=== PATIENT | female | born 1985 | race Two or more races ===

== ENCOUNTER → 2024-11-03 | Outpatient (CLI) | payer BC, SELFPAY ==
--- NOTE | 2024-11-03 11:45 | XR_ITS ---
Examination: Screening digital mammography, bilateral Computer aided detection 3-D breast Tomosynthesis, bilateral Date and time of exam: November 03, 2024 1126 hours No priors Indication: Screening Technique: Nonmagnified MLO, CC views of the breasts to been obtained, reconstructed from 3-D Tomosynthesis images. R2 computer aided detection program utilized for evaluation of suspicious masses and/or abnormal calcifications. 3-D Tomosynthesis images obtained. Findings: The breasts are heterogeneously dense, which may obscure small masses Benign calcifications. No suspicious masses Impression: BI-RADS category II: Benign Findings. Recommend 1 year follow-up mammogram.
== END | disposition home or self-care (01) ==
PROVIDERS: PCP Internal Medicine; Referring Provider Internal Medicine; Visit Provider Internal Medicine
DX: Z12.31 Encounter for screening mammogram for malignant neoplasm of breast (principal); R92.323 Mammographic fibroglandular density, bilateral breasts; R92.1 Mammographic calcification found on diagnostic imaging of breast
CPT/HCPCS: 77063; 77067

== ENCOUNTER 2025-03-15 15:12 | Emergency (ER) | payer BC, SELFPAY ==
--- NOTE | 2025-03-15 15:16 | EKG_ITS ---
[facility] Test Date: 2025-03-15 Pat Name: MARIA LUISA ARMSTRONG Department: Room: - Gender: Female [employer]: : 1985 Requested By: Koffi Downey Order Number: [id number] Reading MD: Koffi Downey Measurements Intervals [place] Rate: 86 P: 55 DE: 130 QRS: 12 QRSD: 140 T: 95 QT: 393 QTc: 471 Interpretive Statements SINUS RHYTHM LEFT BUNDLE BRANCH BLOCK [120+ ms QRS DURATION, 80+ ms Q/S IN V1/V2, 85+ ms R IN I/aVL/V5/V6] Compared to ECG 01/30/2022 16:48:30 Left bundle-branch block now present Myocardial infarct finding no longer present /store/S0/[id number].pdf
--- NOTE | 2025-03-15 15:23 | XR_ITS ---
Upright PA and lateral chest film 03/15/2025 at 3:30 p.m. Comparison study 01/30/2022 CLINICAL HISTORY: Shortness of breath nausea irregular heart rate for a couple of weeks. FINDINGS: The heart and mediastinum have a normal radiographic appearance. Both lungs and pleural space are clear normal. Bony thorax appears unremarkable. IMPRESSION: Normal chest x-ray
--- NOTE | 2025-03-15 15:24 | PD.EDRME ---
Rapid Medical Screening Exam RME Arrival date/time: 03/15/25 15:12 40-year-old female with medical history significant for CHF presents to the emergency department of complaints of chest pain and palpitations Chief Complaint: Chest Pain Time Seen by Provider: 03/15/25 15:15 Vital signs reviewed by provider: Yes Exam: On exam patient well-appearing does not appear ill or toxic Clinical Impression: Lab work imaging EKG obtained
[2025-03-15 15:28] VITALS: BP 116/81; PULSE 98; RESP 18; TEMP 36.9; O2SAT 99
[2025-03-15 15:30] VITALS: BMI 21.9
[2025-03-15 16:16] LABS: Basophils # (Auto) 0.0 Thou/mm3 (0.0-0.2); Basophils % (Auto) 1 % (0-2.5); Eosinophils # (Auto) 0.1 Thou/mm3 (0.0-0.5); Eosinophils % (Auto) 3 % (0-10); Hematocrit 41.8 % (36.0-46.0); Hemoglobin 14.6 g/dL (12.0-16.0); Immature Granulocytes Auto 0.01 Thou/mm3 (0.00-0.00); Lymphocytes # (Auto) 0.9 Thou/mm3 (1.0-4.8); Lymphocytes % (Auto) 20 % (10-50); Mean Corpuscular HGB Conc 34.9 g/dl (31.0-37.0); Mean Corpuscular Hemoglobin 30.4 pg (25.0-35.0); Mean Corpuscular Volume 87 fL (80-100); Monocytes # (Auto) 0.3 Thou/mm3 (0.0-0.8); Monocytes % (Auto) 6 % (0-12); Neutrophils # (Auto) 3.1 Thou/mm3 (1.8-7.7); Neutrophils % (Auto) 71 % (37-80); Nucleated Red Blood Cell # 0.00 Thou/mm3 (0.00-0.00); Nucleated Red Blood Cell % 0 /100 WBC (0); Platelet Count 182 Thou/mm3 (140-440); RDW Standard Deviation 39.8 fL (36.4-46.3); Red Blood Count 4.81 Miln/mm3 (4.00-5.20); White Blood Count 4.4 Thou/mm3 (3.6-11.0)
[2025-03-15 16:32] LABS: HCG,Qualitative Serum Negative
[2025-03-15 16:37] LABS: B-Type Natriuretic Peptide < 20 pg/mL (0-100)
[2025-03-15 16:43] LABS: Alanine Aminotransferase 18 U/L (10-49); Albumin, Serum 4.9 gm/dL (3.5-5.0); Albumin/Globulin Ratio 1.4 (1.2-2.2); Alkaline Phosphatase 64 U/L (46-116); Anion Gap 11 (7-16); Aspartate Amino Transferase 22 U/L (0-34); BUN/Creatinine Ratio 14 Ratio (12-20); Bilirubin,Total 0.4 mg/dL (0.3-1.2); Blood Urea Nitrogen 13 mg/dL (9-23); Calcium 8.9 mg/dL (8.3-10.6); Calcium (Corrected) 8.9 mg/dL (8.5-10.1); Carbon Dioxide 29.0 mMol/L (20.0-31.0); Chloride 97 mMol/L (98-107); Creatinine (Component) 0.9 mg/dL (0.6-1.3); Estimated Creatinine Clearance 70.3 mL/min (>60); Free T4 (Free Thyroxine) 1.28 ng/dL (0.89-1.76); Globulin 3.4 gm/dL (2.3-3.5); Glucose 87 mg/dL (74-106); Magnesium 1.7 mg/dL (1.6-2.6); Osmolality,Calculated 272 (275-295); Potassium 3.4 mMol/L (3.4-5.1); Sodium 137 mMol/L (136-145); Thyroid Stimulating Hormone 3.62 uIU/mL (0.55-4.78); Total Protein 8.3 gm/dL (5.7-8.2); Troponin I < 0.002 ng/mL (0.0-0.045); eGFR > 60 See Note
[2025-03-15 17:08] LABS: INR 1.0 (0.9-1.3); Partial Thromboplastin Time 26.2 Seconds (22.0-36.0); Prothrombin Time 10.4 Seconds (9.0-12.2)
--- NOTE | 2025-03-15 18:46 | EDNOTE_ITS ---
ED Chest Pain RME/HPI General Chief Complaint: Chest Pain Stated Complaint: H/O HEART FAILURE, CHEST FEELS TIGHTNESS, SWELLING Time Seen by Provider: 03/15/25 15:15 Arrival date/time: 03/15/25 15:12 RME / HPI RME / HPI narrative: 03/15/25 15:12 40-year-old female with medical history significant for CHF presents to the emergency department of complaints of chest pain and palpitations See MDM for Dr. Ramos's HPI Documentation. Exam: On exam patient well-appearing does not appear ill or toxic Impression: Lab work imaging EKG obtained Related Data Previous Rx's ?Medication ?Instructions ?Recorded celecoxib 200 mg capsule (Celebrex) 200 mg PO BID PRN pain #60 caps 08/15/19 cyclobenzaprine 10 mg tablet 10 mg PO TID PRN muscle s pasm #30 08/15/19 tabs acetaminophen 500 mg tablet 1,000 mg (2 x 500 mg) PO Q 6H PRN 01/30/22 (Tylenol Extra Strength) fever or pain #30 tabs albuterol sulfate 90 mcg/actuation 2 puff inhalation Q ID #8.5 grams 01/30/22 aerosol inhaler azithromycin 250 mg tablet See Rx Instructions PO .COM PLEX #6 01/30/22 tabs alprazolam 0.5 mg tablet (Xanax) 0.5 mg PO BID PRN anx iety #20 tabs 03/15/25 Allergies Allergy/AdvReac Type Severity Reaction Status Date / Time No Known Allergies Allergy Verified 03/15/25 15:15 Review of Systems Review of Systems Systems Reviewed: All systems reviewed, normal except as documented Past Medical History Social History SMOKING STATUS: Former smoker ED Exam Narrative Physical exam: See [facility] for Dr. Ramos's Physical Exam Documentation. Course Quality Measures none Orders Category Date Time Status Residential Property Manager NOW Care 03/15/25 15:24 Completed EKG (ED ONLY) *Do not use* NOW Care 03/15/25 15:16 Completed EKG (ED Only) Stat Exams 03/15/25 15:16 Draft XR chest 2V Stat Exams 03/15/25 15:23 Completed B-Type Natriuretic Peptide Stat Lab 03/15/25 15:56 Completed CBC Stat Lab 03/15/25 15:56 Completed Comprehensive Metabolic Panel Stat Lab 03/15/25 15:56 Completed D-Dimer Stat Lab 03/15/25 15:56 Completed Free T4 (Free Thyroxine) Stat Lab 03/15/25 15:56 Completed HCG,Qualitative Serum Stat Lab 03/15/25 15:56 Completed Magnesium Stat Lab 03/15/25 15:56 Completed Partial Thromboplastin Time Stat Lab 03/15/25 15:56 Completed Prothrombin Time with INR Stat Lab 03/15/25 15:56 Completed TSH [Thyroid Stimulating Hormone] Stat Lab 03/15/25 15:56 Completed Troponin I Stat Lab 03/15/25 15:56 Completed ALPRazoLAM [Xanax] Med 03/15/25 18:33 Discontinued 0.5 mg PO X1 ONE POTASSIUM CHL 10% Liq 15 ML Med 03/15/25 18:33 Discontinued 40 meq PO X1 ONE Vital Signs Vital signs: Vital Signs Temperature 98.5 F 03/15/25 15:28 Pulse Rate 98 03/15/25 15:28 Respiratory Rate 18 03/15/25 15:28 Blood Pressure 116/81 03/15/25 15:28 Pulse Oximetry (%) 99 03/15/25 15:28 Oxygen Delivery Method Room Air 03/15/25 15:28 Chest Pain MDM Narrative MDM Narrative:: This section includes all my notes and documentations, including HPI, PE, and ED course. Ck Ramos MD HPI: 40-year-old female with CHF here with a couple week history of chest pain and shortness of breath and palpitation episodes. Other symptoms can include intense fear, sweating, chills, shaking, stomach pain, nausea, numbness and tingling in the hands and feet and face, confusion, hot flashes, and feeling faint. No other complaints. ROS: All negative except as documented in HPI. Physical Exam: General: Alert and oriented. Appears anxious. Eyes: Conjunctivae and lids clear. ENT: No nasal congestion. Neck: Supple. Heart: RRR. Lungs: No respiratory distress. Good air movement. No rhonchi, wheezing, rales. Abdomen: Soft and nontender. Normal bowel sounds. No distension. No rebound or guarding. Back: No CVA tenderness. Skin: Warm and dry. Neuro: Alert and oriented X 3. I reviewed all diagnostic test results: My interpretation of the EKG is stable L BBB (86 bpm). My interpretation of the chest x-ray is: NAD. Blood tests unremarkable except K 3.4. At this point, diagnoses include: Chest Pain due to anxiety Treatment here included: Xanax 0.5 mg Oral KCl 40 meq She felt much better. Recommended more outpatient cardiac workup. Based on my best medical judgment, made decision no further evaluation or treatment indicated at this time. Patient understands and agrees to the discharge instructions customized and printed, see below. Discharge instructions from Dr. Ramos: 1. After extensive evaluation, there is no life-threatening condition. Such as heart attack or pulmonary embolism (blood clots in your lungs) or pneumothorax (collapsed lung). 2. Your symptoms may be due to underlying stress or anxiety or nerves. This is fairly common. 3. Take Xanax as needed. Whether this helps or not will be valuable information to your private doctors. 4. See a private doctor this week for recheck. To make sure there is no serious underlying heart condition, ask to help you get more tests for your heart that cannot be done here in the ER. Such as Holter Monitor (cardiac monitoring at home from a day to even a month), heart stress test (on treadmill or with medication), echocardiogram (imaging of your heart st ructures), heart catherization (checking for blockages in your heart arteries), and a referral to see a Manufactured Buildings Supervisor. 5. Seek immediate medical care with worsening or with any concerns. Ck Ramos MD Patient data External records reviewed:: [facility] previous records (Reviewed prior ED records from 01/30/22. Patient was seen for Bronchitis.) Clinical information provided by:: patient Social determinants that could affect healthcare access:: none Patient has the following chronic illnesses:: None reported. How is presenting disease/condition affected by chronic disease/condition?: no chronic disease Evaluation data The following diagnostics were reviewed and interpreted by me:: lab results, radiology exam(s) and EKG tracing(s) Lab and/or radiology exams considered but not ordered:: None Interpretation Summary: I reviewed all diagnostic test results: My interpretation of the EKG is stable L BBB (86 bpm). My interpretation of the chest x-ray is: NAD. Blood tests unremarkable except K 3.4. Medications / Prescriptions Medications or Prescriptions considered but not ordered:: None Medication administrations:: Medication Administration History Discontinued Medications Alprazolam (Alprazolam 0.25 Mg Tablet) 0.5 mg PO X1 ONE Stop: 03/15/25 18:34 Last Admin: 03/15/25 19:36 Dose: 0.5 mg Documented By: OA Potassium Chloride (Potassium Chloride 10% 20 Meq/15 Ml Udc) 40 meq PO X1 ONE Stop: 03/15/25 18:34 Last Admin: 03/15/25 19:36 Dose: 40 meq Documented By: OA Treatment here included: Xanax 0.5 mg Oral KCl 40 meq Consultations Consultation(s) initiated? (list below): No Diagnosis Chest Pain Differential Diagnosis: pneumothorax, stable angina, unstable angina pectoris, atypical chest pain, st elevation myocardial infarction, c ostochondritis and other (Anxiety ) Most likely diagnosis given after review of the tests above:: Chest Pain due to anxiety Admission Indicated Admission indicated?: not indicated Explain why admission is indicated or not indicated:: With significant improvement and no condition needing emergent intervention, there was no indication for admission. Admission Request Was there a request for admission?: No Disposition Plan Disposition Plan: Discharge Discharge Attestation Discharge Attestation: The patient and all family members were given an opportunity to ask questions and understood the discharge instructions. Discharge instructions specifically effects, indications for sooner follow up or return to the emergency department, and the expected course of current diagnosis. Patient condition: Stable Discharge Plan Plan Patient Disposition: HOME (Self Care) Prescriptions/Referrals Prescriptions/Med Rec: New alprazolam [Xanax] 0.5 mg tablet 0.5 mg PO BID PRN (Reason: anxiety) Qty: 20 0RF No Action celecoxib [Celebrex] 200 mg capsule 200 mg PO BID PRN (Reason: pain) Qty: 60 0RF cyclobenzaprine 10 mg tablet 10 mg PO TID PRN (Reason: muscle spasm) Qty: 30 0RF azithromycin 250 mg tablet See Rx Instructions .ROUTE .COMPLEX Qty: 6 0RF Rx Instructions: For 250 mg dose pack: take 500 mg today (day 1), then 250 mg for 4 days (days 2-5) albuterol sulfate 90 mcg/actuation HFA aerosol inhaler 2 puff inhalation QID Qty: 8.5 0RF acetaminophen [Tylenol Extra Strength] 500 mg tablet 1,000 mg PO Q6H PRN (Reason: fever or pain) Qty: 30 0RF Referrals: Susan Mckeon MD [Primary Care Provider] - In 1 week Problem List Clinical Impression: Chest pain Patient/Caregiver Discharge Instructions Discharge Activity: activity as tolerated Education Materials: ED Anxiety Reaction, ED Chest Pain, Uncertain Cause Additional Instructions: Discharge instructions from Dr. Ramos: 1. After extensive evaluation, there is no life-threatening condition. Such as heart attack or pulmonary embolism (blood clots in your lungs) or pneumothorax (collapsed lung). 2. Your symptoms may be due to underlying stress or anxiety or nerves. This is fairly common. 3. Take Xanax as needed. Whether this helps or not will be valuable information to your private doctors. 4. See a private doctor this week for recheck. To make sure there is no serious underlying heart condition, ask to help you get more tests for your heart that cannot be done here in the ER. Such as Holter Monitor (cardiac monitoring at home from a day to even a month), heart stress test (on treadmill or with medication), echocardiogram (imaging of your heart structures), heart catherization (checking for blockages in your heart arteries), and a referral to see a Manufactured Buildings Supervisor. 5. Seek immediate medical care with worsening or with any concerns. Print Language: Mohawk Stand Alone Forms: Rita Award Info., Patient Portal Info Letter
[2025-03-15] MEDS: POTASSIUM CHLORIDE 10% 20 MEQ/15 ML UDC 40 MEQ PO (19:36)
[2025-03-15 19:50] LABS: D-Dimer 253 ng/mL (<600)
== END 2025-03-15 20:14 | disposition home or self-care (01) ==
PROVIDERS: Nurse Practitioner Primary Care; Emergency Provider Emergency Medicine; PCP Family Medicine
DX: R07.9 Chest pain, unspecified (principal); F41.9 Anxiety disorder, unspecified; I44.7 Left bundle-branch block, unspecified
CPT/HCPCS: 36415; 71046; 80053; 83735; 83880; 84439; 84443; 84484; 84703; 85025; 85379; 85610; 85730; 93005; 99284; A9270